=== PATIENT | male | born 1985 | race African-American/Black ===

== ENCOUNTER 2016-08-14 02:26 | Emergency (ER) | payer OTHER ==
[~2016-08-14 02:26] MED LIST: ALBUTEROL17 G1 INH; BACTRIM DS TABL1 TA1 PO; BACTRIM DS TABL1 TA2 PO; BACTROBAN22 GM TP; DAKIN'S MODIF1000 ML EXT; GLUCOPHAGE500 M1 PO; HUMALOG100 U/ML; KEFLEX PO; LANTUS100 U/ML; LANTUS100 U/ML SUBQ; LORTAB 5/500 TA1 TA1 PO; LORTAB 7.51 TAB PO; MORGIDOX100 MG PO; MUCINEX100 MG/BOX PO; NOVOLOG100 U/ML SUBQ; PERCOCET PO; TETRACYCLINE PO; ZITHROMAX1 G/PKT PO
== END 2016-08-14 03:26 | disposition home or self-care (01) ==
LOC: CED 02:26
DX: L02.31 Cutaneous abscess of buttock (principal); J45.909 Unspecified asthma, uncomplicated; E11.9 Type 2 diabetes mellitus without complications; Z79.4 Long term (current) use of insulin; F17.290 Nicotine dependence, other tobacco product, uncomplicated
CPT/HCPCS: 10060; 99283

== ENCOUNTER 2016-11-21 15:10 | Emergency (ER) | payer OTHER | END 2016-11-21 16:05 | disposition home or self-care (01) | LOC: CFTX 15:10 → CED 15:10 → CFTX 16:02 | DX: L03.317 Cellulitis of buttock (principal); E11.9 Type 2 diabetes mellitus without complications; J45.909 Unspecified asthma, uncomplicated; Z98.890 Other specified postprocedural states | CPT/HCPCS: 99283 ==